=== PATIENT | male | born 1965 | race Caucasian/White ===

== ENCOUNTER → 2018-03-01 | Outpatient (CLI) | payer OTHER ==
--- NOTE | 2018-03-01 14:01 | DIREP ---
PROCEDURE:MR KNEE WITHOUT CONTRAST [Left] TECHNIQUE:Axial proton density fat sat; coronal T1 and inversion recovery; sagittal proton density, proton density fat sat and T2 weighted sequences were obtained. COMPARISON:None. INDICATIONS:LAT MENISCAL TEAR FINDINGS: Menisci: The medial and lateral menisci are intact. Cruciate ligaments: The anterior and posterior cruciate ligaments are normal. Bones and joint space: There is a moderate size joint effusion. There are no loose bodies. There is no fracture, marrow edema, destructive intraosseous lesion or evidence of avascular necrosis. The articular cartilage in all 3 compartments is intact. Collateral ligaments: The medial and lateral collateral ligaments are normal. Extensor mechanism: The quadriceps and patellar tendons are normal. The patella is intact. The medial and lateral retinacula are normal. The pre-femoral, suprapatellar and infrapatellar fat pads are normal. There is no prepatellar or infrapatellar bursitis. Miscellaneous: The muscles and tendons about the knee are intact. The neurovascular structures are normal. The tibiofibular joint is normal. There is no Oneill's cyst. Subcutaneous edematous changes are present over the medial and lateral knee. CONCLUSION: 1. Moderate-sized joint effusion of uncertain etiology. 2. Subcutaneous edematous changes over the medial and lateral knee. 3. The menisci and ligaments are intact. Dictated by: Barry Brian M.D. on 03/01/2018 at 01:58 PM
== END | disposition home or self-care (01) ==
LOC: MRI 12:34
PROVIDERS: ATTEND Orthopaedic Surgery
DX: M25.462 Effusion, left knee (principal); I10 Essential (primary) hypertension; E78.00 Pure hypercholesterolemia, unspecified; I25.10 Atherosclerotic heart disease of native coronary artery without angina pectoris
CPT/HCPCS: 73721

== ENCOUNTER → 2021-01-14 | Outpatient (CLI) | payer BC ==
--- NOTE | 2021-01-14 18:09 | DIREP ---
PROCEDURE:CT PELVIS W/O COMPARISON:None. INDICATIONS:CLACIFIED DENSITY LEFT ILIAC BONE TECHNIQUE:Axial images were created through the pelvis without intravenous contrast material. No oral contrast was administered. Sagittal and coronal reconstructions were performed from source images. FINDINGS: AORTA/VASCULAR:Mild scattered atherosclerotic calcifications without aneurysmal dilatation. RETROPERITONEUM:No suspicious retroperitoneal or pelvic lymphadenopathy. BOWEL/MESENTERY:No evidence for small bowel obstruction. Mild scattered distal colonic diverticulosis without evidence to suggest acute diverticulitis. Normal appendix. ABDOMINAL WALL:Fat containing left inguinal hernia. PELVIC ORGANS:Urinary bladder is mildly distended, but appears otherwise grossly unremarkable. The prostate gland is not enlarged. No free fluid within the pelvis. BONES:Left hip arthroplasty. 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 Degenerative changes of the spine. No suspicious osseous lesion is identified. Specifically, no suspicious sclerotic lesion is identified within the left iliac bone; however, there is a peripherally calcified nodule within the superficial subcutaneous tissues of the left flank which would superimpose on the left iliac bone on pelvic radiographs and could give the appearance of a sclerotic left iliac lesion. CONCLUSION: 1. Intact left hip arthroplasty. Moderate to severe degenerative changes of the right hip with additional degenerative changes of the imaged lower lumbar spine. 2. No suspicious osseous lesion is identified; however, there is a peripherally calcified nodule within the superficial subcutaneous tissues of the left flank which would superimpose on the left iliac bone on pelvic radiographs and could give the appearance of a sclerotic left iliac lesion. Dictated by: William French M.D. On 01/14/2021 at 06:00 PM
== END | disposition home or self-care (01) ==
LOC: RAD 15:55
PROVIDERS: ATTEND Nurse Practitioner Family
DX: K57.30 Diverticulosis of large intestine without perforation or abscess without bleeding (principal); K40.90 Unilateral inguinal hernia, without obstruction or gangrene, not specified as recurrent; N32.89 Other specified disorders of bladder; I70.0 Atherosclerosis of aorta; M47.816 Spondylosis without myelopathy or radiculopathy, lumbar region; M16.11 Unilateral primary osteoarthritis, right hip
CPT/HCPCS: 72192

== ENCOUNTER → 2023-02-23 | Outpatient (CLI) | payer BC | END | disposition home or self-care (01) | LOC: RAD 10:23 | PROVIDERS: ATTEND Physician Assistant | DX: S92.811A Other fracture of right foot, initial encounter for closed fracture (principal); M25.474 Effusion, right foot; M77.31 Calcaneal spur, right foot; M19.071 Primary osteoarthritis, right ankle and foot; X58.XXXA Exposure to other specified factors, initial encounter; Y93.89 Activity, other specified; Y92.89 Other specified places as the place of occurrence of the external cause; Y99.8 Other external cause status | CPT/HCPCS: 73610-RT; 73630-RT; 93971 ==

== ENCOUNTER → 2023-03-30 | Outpatient (CLI) | payer BC | END | disposition home or self-care (01) | LOC: RAD 12:43 | PROVIDERS: ATTEND Physician Assistant | DX: S92.901D Unspecified fracture of right foot, subsequent encounter for fracture with routine healing (principal); S93.401D Sprain of unspecified ligament of right ankle, subsequent encounter; M19.071 Primary osteoarthritis, right ankle and foot; I70.0 Atherosclerosis of aorta; X58.XXXD Exposure to other specified factors, subsequent encounter | CPT/HCPCS: 73610-RT; 73630-RT ==

== ENCOUNTER 2023-06-18 12:20 | Emergency (ER) | payer BC ==
[~2023-06-18] VITALS: Ht 177.8 cm; Wt 113.4 kg
[2023-06-18 12:20] VITALS: BP 155/90; PULSE 99; RESP 18; TEMP 98.6; O2SAT 98
[2023-06-18] MEDS ORDERED: TORADOL ONE (12:41)
[2023-06-18] MEDS ORDERED: TORADOL IM ONE (13:00)
[2023-06-18 13:28] VITALS: BP 130/82; PULSE 89; RESP 18; TEMP 98.6; O2SAT 98
== END 2023-06-18 13:28 | disposition home or self-care (01) ==
LOC: ER 12:20 → EDBD 12:20 → ER 13:28
DX: S33.6XXA Sprain of sacroiliac joint, initial encounter (principal); Z88.0 Allergy status to penicillin; X58.XXXA Exposure to other specified factors, initial encounter; Y93.89 Activity, other specified; Y92.89 Other specified places as the place of occurrence of the external cause; Y99.8 Other external cause status
CPT/HCPCS: 99284; 96372; 72170; J1885

== ENCOUNTER 2023-07-24 06:30 | Day surgery (SDC) | payer BC ==
[2023-07-21 10:57] VITALS: BP 156/84; PULSE 84; RESP 18; TEMP 98.4; O2SAT 95
[2023-07-21 12:31] LABS: BILIRUBIN,URINE NEGATIVE (NEGATIVE); LEUKOCYTE ESTERASE ,URINE 1+ (NEGATIVE); NITRATE,URINE NEGATIVE (NEGATIVE); PH,URINE 5.5 (4.5-8.0)
[2023-07-21 12:34] LABS: BASOPHIL % 0.2 % (0.0-0.2); EOSINOPHIL # 0.3 10^3/uL (0.0-0.2); HEMATOCRIT(ML) 38.3 % (37.0-53.0); HEMOGLOBIN 12.4 g/dL (13.9-16.3); LYMPHOCYTES # 0.99 10^3/uL1 (1.0-4.8); LYMPHOCYTES % 16.3 % (24.0-44.0); MEAN CORP HGB 29.1 pg (26-34); MEAN CORP HGB CONCENTRATION 32.4 g/dL (33-36.5); MEAN CORP VOLUME 89.9 fL (78-100); MONOCYTES # 0.4 10^3/uL (0.3-0.8); MONOCYTES % 5.9 % (5.0-12.0); NEUTROPHIL # 4.4 10^3/uL (1.8-7.7); NEUTROPHILS % 72.4 % (41.0-85.0); PLATELET COUNT 212 10^3/uL (150-400); RED BLOOD CELL 4.26 10^6/uL (4.50-5.90); RED CELL DISTRIBUTION WIDTH 14.4 % (11.5-14.5); WHITE BLOOD CELL 6.1 10^3/uL (4.5-11.0)
[2023-07-21 12:37] LABS: +ADD MANUAL DIFF(NO CHRG) NO
[2023-07-21 12:43] LABS: APPEARANCE,URINE CLEAR; UA COLOR YELLOW
[2023-07-21 12:58] LABS: ALBUMIN(ML) 3.1 g/dL (3.4-5.0); ALBUMIN/GLOBULIN RATIO 0.911; ANION GAP 14.7; BUN/CREATININE RATIO 17.21 (10.0-20.0); CARBON DIOXIDE 28.6 mmol/L (20.0-32); CREATININE SERUM 1.22 mg/dL (0.59-1.40); POTASSIUM 4.3 mmol/L (3.6-5.2)
[~2023-07-24] VITALS: Ht 177.8 cm; Wt 113.4 kg
[~2023-07-24 06:30] MED LIST: BACTROBAN OINTMENT TP ONE; LACTATED RINGERS 1,000 ML IV ONE; LACTATED RINGERS 1,000 ML ONE; VANCOMYCIN 2 GRAM/400 ML BAG 400 ML IV ONE; VANCOMYCIN HCL 2 GM in NS 250ML 250 ML IV ONE
[2023-07-24 06:42] VITALS: BP 131/73; PULSE 83; RESP 16; TEMP 96; O2SAT 96
[2023-07-24] MEDS ORDERED: DECADRON ONE (07:06)
[2023-07-24] MEDS ORDERED: CELEBREX ONE (07:07)
[2023-07-24] MEDS ORDERED: OFIRMEV 1000 MG/100 ML 100 ML IV ONE (07:07)
[2023-07-24] MEDS ORDERED: ULTRAM ONE (07:07)
[2023-07-24] MEDS ORDERED: NEURONTIN ONE (07:07)
[2023-07-24] MEDS ORDERED: NEURONTIN PO ONE (07:15)
[2023-07-24] MEDS ORDERED: CELEBREX PO ONE (07:15)
[2023-07-24] MEDS ORDERED: ZOFRAN ONE (07:22)
[2023-07-24] MEDS ORDERED: NAROPIN 0.5% 5 MG/ML VIAL ONE (07:22)
[2023-07-24] MEDS ORDERED: SUBLIMAZE 100MCG/2ML ONE (07:23)
[2023-07-24] MEDS ORDERED: VERSED ONE (07:23)
[2023-07-24] MEDS ORDERED: NS 3000ML IRR IR ONE (07:26)
[2023-07-24] MEDS ORDERED: SODIUM CHLORIDE IRR BOTTLE IR ONE (07:26)
[2023-07-24] MEDS ORDERED: NS 250ML 250 ML ONE (07:27)
[2023-07-24] MEDS ORDERED: WATER ONE (07:27)
[2023-07-24] MEDS ORDERED: OFIRMEV 1000 MG/100 ML IV ONE (08:00)
[2023-07-24] MEDS ORDERED: ULTRAM PO ONE (08:00)
[2023-07-24] MEDS ORDERED: DECADRON IV ONE (08:00)
[2023-07-24] MEDS ORDERED: NS 100ML 100 ML IV ONE (08:03)
[2023-07-24] MEDS ORDERED: DULO60CA8 PO (09:07)
[2023-07-24] MEDS ORDERED: FAMO40TA4 PO (09:07)
[2023-07-24] MEDS ORDERED: GABA300C PO (09:07)
[2023-07-24] MEDS ORDERED: CELE100C PO (09:07)
[2023-07-24] MEDS ORDERED: DICY20TA PO (09:07)
[2023-07-24] MEDS ORDERED: PANT20TA2 PO (09:07)
[2023-07-24] MEDS ORDERED: DULO30CA2 PO (09:07)
[2023-07-24] MEDS ORDERED: ONDA8TAB16 PO (09:07)
[2023-07-24] MEDS ORDERED: FURO40TA4 PO (09:07)
[2023-07-24] MEDS ORDERED: OMEG-151 PO (09:07)
[2023-07-24] MEDS ORDERED: GLIM2TAB7 PO (09:07)
[2023-07-24] MEDS ORDERED: METF10007 PO (09:07)
[2023-07-24] MEDS ORDERED: ASPI1TAB30 PO (09:07)
[2023-07-24] MEDS ORDERED: ATOR40TA PO (09:07)
[2023-07-24] MEDS ORDERED: BUSP15TA PO (09:07)
[2023-07-24] MEDS ORDERED: CARV12.5 PO (09:07)
[2023-07-24] MEDS ORDERED: ASPI-667 PO (09:07)
[2023-07-24] MEDS ORDERED: FERR240T11 PO (09:07)
[2023-07-24] MEDS ORDERED: BENZ200C48 PO (09:07)
[2023-07-24] MEDS ORDERED: VITA-48 PO (09:07)
[2023-07-24] MEDS ORDERED: LISI40TA10 PO (09:07)
[2023-07-24] MEDS ORDERED: BENTYL PO SCH (10:30)
[2023-07-24] MEDS ORDERED: COREG PO SCH (10:30)
[2023-07-24] MEDS ORDERED: CYMBALTA PO SCH (21:00)
[2023-07-24] MEDS ORDERED: NEURONTIN PO SCH (21:00)
[2023-07-25] MEDS ORDERED: AMARYL PO SCH (09:00)
[2023-07-25] MEDS ORDERED: LASIX PO SCH (09:00)
[2023-07-25] MEDS ORDERED: LIPITOR PO SCH (09:00)
== END 2023-07-24 08:45 | disposition home or self-care (01) ==
LOC: SDC 06:30
PROVIDERS: ATTEND Orthopaedic Surgery
DX: M16.11 Unilateral primary osteoarthritis, right hip (principal); R82.90 Unspecified abnormal findings in urine; Z79.899 Other long term (current) drug therapy; Z53.8 Procedure and treatment not carried out for other reasons
CPT/HCPCS: 93005; 87086; 80053; 85025; 36415; 81001; 87070; 82948; J7050; J7120; A4217 ×2; J0131; J1100; J2795; J2405; J2250; J3010; J8499 ×2